=== PATIENT | male | born 1960 | race Caucasian/White ===

== ENCOUNTER 2021-07-18 11:43 | Emergency (ER) | payer MEDICAID ==
[~2021-07-18] VITALS: Ht 175.3 cm; Wt 108.9 kg
[2021-07-18] MEDS ORDERED: HYDROCODONE/APAP 10-325 MG TABLET PO ONE (12:15)
[2021-07-18] MEDS ORDERED: HYDROCODONE/APAP 10-325 MG TABLET ONE (12:23)
--- NOTE | 2021-07-18 13:22 | NUR ---
Patient discharged to home in stable condition. Written and verbal after care instructions given. Patient verbalizes understanding of instructions. Stressed follow up or return to ER for worsening s/s.
[2021-07-18] MEDS ORDERED: IBUP-1955 PO (13:25)
[2021-07-18] MEDS ORDERED: HYDR-3980 PO (13:25)
[2021-07-18] MEDS ORDERED: IBUP-1957 PO (13:25)
== END 2021-07-18 13:30 | disposition home or self-care (01) ==
LOC: ER 11:43
DX: S89.92XA Unspecified injury of left lower leg, initial encounter (principal); M25.462 Effusion, left knee; W01.0XXA Fall on same level from slipping, tripping and stumbling without subsequent striking against object, initial encounter; Y92.89 Other specified places as the place of occurrence of the external cause; Z96.652 Presence of left artificial knee joint
CPT/HCPCS: A4663